=== PATIENT | male | born 1995 | race Caucasian/White ===

== ENCOUNTER 2016-03-24 18:26 | Emergency (ER) | payer OTHER ==
[~2016-03-24 18:26] MED LIST: ADV500INH INH; ALBU17IN INH; IBUPOTC PO
[2016-03-24] MEDS ORDERED: predniSONE 20 MG TAB As Ordered ONE (20:19)
[2016-03-24] MEDS ORDERED: ACETAMINOPHEN 325 MG TAB As Ordered ONE (20:19)
[2016-03-24] MEDS ORDERED: IPRATROPIUM 0.5MG/ALBUTEROL 2.5MG INH SOL UD 3ML (DUONEB)(J7620) As Ordered ONE (20:21)
[2016-03-24] MEDS ORDERED: ALBUTEROL 90 MCG/ACT 8GM HFA INHALER As Ordered ONE (21:26)
[2016-03-24] MEDS ORDERED: AZITHROMYCIN 250 MG TAB As Ordered ONE (21:26)
--- NOTE | 2016-03-24 21:46 | EDDOCDS ---
Physician Documentation [facility] Name: Rajeev Espinosa Age: 21 yrs Sex: Male : 1995 Arrival Date: 03/24/2016 Time: 18:26 Bed PD Private MD: [facility] Disposition: 03/24/16 21:28 Discharged to Home/Self Care. Impression: Acute bronchitis. - Condition is Stable. - Discharge Instructions: Acute Bronchitis. - Prescriptions for Zithromax 250 mg Oral Tablet - take 1 tablet by ORAL route once daily start tomorrow; 4 tablet. - Medication Reconciliation, Local Pharmacy Hours form. - Follow up: [facility]; When: Call to arrange an appointment; Reason: Recheck today's complaints, Continuance of care. - Problem is new. - Symptoms are unchanged. Historical: - Allergies: no known allergies; - Home Meds: 1. Dayquil 15ml every 4 hours as needed - PMHx: none; - PSHx: none; - Social history: Smoking status: Patient uses tobacco products, light tobacco smoker. No barriers to communication noted, The patient speaks fluent Sao Tomean, Speaks appropriately for age. - Family history: Not pertinent. - : The pt / caregiver states he / she is not on anticoagulants. Home medication list is obtained from the patient. - Exposure Risk Screening:: None identified. Vital Signs: 03/24 18:28 BP 171 / 81; Pulse 92; Resp 18 S; Temp 98.4(O); Pulse Ox 97% on R/A; Weight 79.38 kg / dd6 175 lbs (R); Height 5 ft. 6 in. (167.64 cm) (R); 21:36 BP 130 / 84; Pulse 71; Resp 18; Temp 97.4(T); Pulse Ox 97% on R/A; Pain 2/10; ar3 18:28 Body Mass Index 28.25 (79.38 kg, 167.64 cm) dd6 MDM: 20:16 Call Respiratory ordered. mo1 20:16 Albuterol-Ipratropium 3 ml Inhalation once ordered. mo1 20:16 Acetaminophen Tablet 975 mg PO once ordered. mo1 20:16 predniSONE 60 mg PO once; administer with food or milk ordered. mo1 20:17 Call Respiratory complete. rs3 20:17 Chest, 2 View (pa\E\lat) Ordered. EDMS 20:41 Financial registration complete. zo 20:42 [facility] Payment Agreement was scanned into [employer] and attached to record. zo 21:23 Ventolin Inhaler 2 puffs Inhalation once ordered. mo1 21:23 MDI teaching with Spacer ordered. mo1 21:23 azithromycin 500 mg PO once ordered. mo1 Administered Medications: 20:23 Drug: Acetaminophen 975 mg [acetaminophen 325 mg tablet (3 tabs)] Route: PO; rs3 20:23 Drug: predniSONE 60 mg [prednisone 20 mg tablet (3 tabs)] Route: PO; rs3 20:28 Drug: Albuterol-Ipratropium 3 ml [ipratropium-albuterol 0.5 mg-3 mg(2.5 mg base)/3 mL jh6 nebulization soln (3 mL)] Route: Inhalation; 21:39 Drug: Ventolin 2 puffs [Ventolin HFA 90 mcg/actuation aerosol inhaler (2 puffs)] Route: rs3 Inhalation; 21:39 Drug: azithromycin 500 mg [azithromycin 250 mg tablet (2 tabs)] Route: PO; rs3 Signatures: Dispatcher MedHost EDMA Gricel Rodriguez RN RN david3 Sheldon Daniels Rosemary, RN RN rs3 Kenn Severino PA PA mo1 Hardeep Culver jh6 The chart was reviewed and I authenticate all verbal orders and agree with the evaluation and treatment provided.Attachments: 20:42 [facility] Payment Agreement zo MTDD
--- NOTE | 2016-03-24 21:46 | EDDOCDS ---
Nurse's Notes [facility] Name: Rajeev Espinosa Age: 21 yrs Sex: Male : 1995 Arrival Date: 03/24/2016 Time: 18:26 Bed PD Private MD: [facility]SU[facility] JAIME Diagnosis: Acute bronchitis Presentation: 03/24 18:30 Presenting complaint: Patient states: SOB, productive cough with chest discomfort. Pt jo3 reports that he had pneumonia in January and "it feels a lot like that". Adult Sepsis Screening: The patient does not have new or worsening altered mentation. Patient's respiratory rate is less than 22. Systolic blood pressure is greater than 100. Patient has a qSOFA score of 0- Negative Sepsis Screen. Suicide/Homicide risk assessment- the patient denies having any suicidal and/or homicidal ideations and does not present with any other emotional, behavioral or mental health complaints. Status: The patient is an active duty service delivery analyst. Transition of care: patient was not received from another setting of care. 18:30 Acuity: MARIA INES Level 3 jo3 18:30 Method Of Arrival: Walkin/Carried/Asstd jo3 Triage Assessment: 18:33 General: Appears in no apparent distress, comfortable, Behavior is appropriate for age, jo3 cooperative, pleasant. HIV screening NA for this visit Offered previously. Neurological: No deficits noted. Level of Consciousness is awake, alert, Oriented to person, place, time. Respiratory: Airway is patent Respiratory effort is even, unlabored. 21:42 Respiratory: Onset: The symptoms/episode began/occurred gradually. rs3 Historical: - Allergies: no known allergies; - Home Meds: 1. Dayquil 15ml every 4 hours as needed - PMHx: none; - PSHx: none; - Social history: Smoking status: Patient uses tobacco products, light tobacco smoker. No barriers to communication noted, The patient speaks fluent Estonian, Speaks appropriately for age. - Family history: Not pertinent. - : The pt / caregiver states he / she is not on anticoagulants. Home medication list is obtained from the patient. - Exposure Risk Screening:: None identified. Screenin:39 Screening information is obtained from the patient. Fall risk: No risks identified. rs3 Assistance ADL's: requires no assistance with activities of daily living. Abuse/DV Screen: The patient / caregiver reports he/she is: not in a situation that causes fear, pain or injury. Nutritional screening: No deficits noted. Advance Directives: Currently, there is no health care proxy. There is no active DNR order. home support is adequate. Assessment: 20:23 General: Appears in no apparent distress, Behavior is appropriate for age, cooperative. rs3 Cardiovascular: Chest pain is denied. Respiratory: Airway is patent Respiratory effort is even, unlabored, Respiratory pattern is regular, symmetrical, Breath sounds with wheezes inspiratory expiratory bilaterally. Derm: Skin is pink, warm & dry. Vital Signs: 18:28 BP 171 / 81; Pulse 92; Resp 18 S; Temp 98.4(O); Pulse Ox 97% on R/A; Weight 79.38 kg dd6 (R); Height 5 ft. 6 in. (167.64 cm) (R); 21:36 BP 130 / 84; Pulse 71; Resp 18; Temp 97.4(T); Pulse Ox 97% on R/A; Pain 2/10; ar3 18:28 Body Mass Index 28.25 (79.38 kg, 167.64 cm) dd6 Vitals: 18:28 Log In Time: March 24, 2016 at 18:26. dd6 ED Course: 18:28 Patient visited by Erickson Zapata PCA. dd6 18:28 [facility] is Private Physician. dd6 18:28 Patient moved to Waiting dd6 18:29 Patient moved to Pre RCE dd6 18:32 Triage Initiated jo3 18:34 Patient visited by Gricel Rodriguez RN. jo3 19:36 Patient moved to Triage 2 ar3 20:10 Kenn Severino PA is PHCP. mo1 20:10 Trae Angeles DO is Attending Physician. mo1 20:16 Patient moved to PD / ar3 20:20 Patient visited by Kenn Severino PA. mo1 20:42 [facility] Payment Agreement was scanned into [employer] and attached to record. zo 20:45 Patient name changed from Rajeev\\S\\\\S\\Francisca\\S\\ to Rajeev\\S\\Antonne\\S\\Francisca. EDMS 21:27 [facility] is Referral Physician. mo1 21:36 Patient visited by Yamilka Skinner PCA. ar3 21:40 No IV's were initiated during this patient's visit. No procedures done that require rs3 assistance. 21:42 The patient / caregiver is instructed regarding the plan of care and ED course. rs3 Administered Medications: 20:23 Drug: Acetaminophen 975 mg [acetaminophen 325 mg tablet (3 tabs)] Route: PO; rs3 20:23 Drug: predniSONE 60 mg [prednisone 20 mg tablet (3 tabs)] Route: PO; rs3 20:28 Drug: Albuterol-Ipratropium 3 ml [ipratropium-albuterol 0.5 mg-3 mg(2.5 mg base)/3 mL jh6 nebulization soln (3 mL)] Route: Inhalation; 21:39 Drug: Ventolin 2 puffs [Ventolin HFA 90 mcg/actuation aerosol inhaler (2 puffs)] Route: rs3 Inhalation; 21:39 Drug: azithromycin 500 mg [azithromycin 250 mg tablet (2 tabs)] Route: PO; rs3 RT: 20:28 Initial Med Neb Given as ordered Patient was instructed and evaluated on procedure jh6 Patient tolerated procedure well without adverse effect. Respiratory: Airway is patent Respiratory effort is even, unlabored, Respiratory pattern is regular symmetrical, Breath sounds are diminished in left posterior upper lobe, right posterior upper lobe, left posterior lower lobe, right posterior middle lobe and right posterior lower lobe Breath sounds with wheezes in left posterior lower lobe, right posterior middle lobe and right posterior lower lobe at expiration. 20:37 Respiratory: Airway is patent Respiratory effort is even, unlabored, Respiratory jh6 pattern is regular symmetrical, Breath sounds are clear in left posterior upper lobe, right posterior upper lobe, right posterior middle lobe and right posterior lower lobe Breath sounds with wheezes in left posterior lower lobe at expiration. 21:40 Patient Education: patient instructed on proper spacer use and reason for use. jh6 Order Results: There are currently no results for this order. Outcome: 21:28 Discharge ordered by Provider. mo1 21:40 Discharge Assessment: patient administered narcotics - no. The following High Risk rs3 Discharge criteria are identified: None. Discharged to home with family. Condition: stable. Discharge instructions given to patient, Instructed on discharge instructions, follow up and referral plans. medication usage, Demonstrated understanding of instructions, medications, Pt was receptive of discharge instructions/ teaching. Prescriptions given X 1. No special radiology studies were completed. Property :Personal belongings accompany Pt. 21:45 Patient left the ED. rs3 Signatures: Dispatcher MedHost EDGricel Nolen RN RN jo3 Sheldon Daniels Daniell, EXHIBIT CLEANER EXHIBIT CLEANER dd6 Mayelin Hawkins RN RN rs3 Yamilka Skinner, EXHIBIT CLEANER EXHIBIT CLEANER ar3 Hardeep Culver 6 Kenn Severino PA PA mo1 MTDD
--- NOTE | 2016-03-25 03:07 | REP ---
Clinical: Acute cough . Comparison: 01/04/2016 . Technique: PA and lateral. Findings: The mediastinum and cardiac silhouette are normal. The lung hernandez are clear and without acute consolidation, effusion, or pneumothorax. The skeletal structures are intact and normal. Impression: 1. No acute cardiopulmonary process. Signed by Stanley Holley MD 03/25/2016 02:58 A
--- NOTE | 2016-03-26 22:46 | EDDOCDS ---
Physician Documentation [facility] Name: Rajeev Espinosa Age: 21 yrs Sex: Male : 1995 Arrival Date: 03/24/2016 Time: 18:26 Bed PD Private MD: [facility] Disposition: 03/24/16 21:28 Discharged to Home/Self Care. Impression: Acute bronchitis. - Condition is Stable. - Discharge Instructions: Acute Bronchitis. - Prescriptions for Zithromax 250 mg Oral Tablet - take 1 tablet by ORAL route once daily start tomorrow; 4 tablet. - Medication Reconciliation, Local Pharmacy Hours form. - Follow up: [facility]; When: Call to arrange an appointment; Reason: Recheck today's complaints, Continuance of care. - Problem is new. - Symptoms are unchanged. Historical: - Allergies: no known allergies; - Home Meds: 1. Dayquil 15ml every 4 hours as needed - PMHx: none; - PSHx: none; - Social history: Smoking status: Patient uses tobacco products, light tobacco smoker. No barriers to communication noted, The patient speaks fluent Albanian, Speaks appropriately for age. - Family history: Not pertinent. - : The pt / caregiver states he / she is not on anticoagulants. Home medication list is obtained from the patient. - Exposure Risk Screening:: None identified. Vital Signs: 03/24 18:28 BP 171 / 81; Pulse 92; Resp 18 S; Temp 98.4(O); Pulse Ox 97% on R/A; Weight 79.38 kg / dd6 175 lbs (R); Height 5 ft. 6 in. (167.64 cm) (R); 21:36 BP 130 / 84; Pulse 71; Resp 18; Temp 97.4(T); Pulse Ox 97% on R/A; Pain 2/10; ar3 18:28 Body Mass Index 28.25 (79.38 kg, 167.64 cm) dd6 MDM: 20:16 Call Respiratory ordered. mo1 20:16 Albuterol-Ipratropium 3 ml Inhalation once ordered. mo1 20:16 Acetaminophen Tablet 975 mg PO once ordered. mo1 20:16 predniSONE 60 mg PO once; administer with food or milk ordered. mo1 20:17 Call Respiratory complete. rs3 20:17 Chest, 2 View (pa\E\lat) Ordered. EDMS 20:41 Financial registration complete. zo 20:42 [facility] Payment Agreement was scanned into [employer] and attached to record. zo 21:23 Ventolin Inhaler 2 puffs Inhalation once ordered. mo1 21:23 MDI teaching with Spacer ordered. mo1 21:23 azithromycin 500 mg PO once ordered. mo1 22:05 T-Sheet-- Draft Copy was scanned into [employer] and attached to record. klr Administered Medications: 20:23 Drug: Acetaminophen 975 mg [acetaminophen 325 mg tablet (3 tabs)] Route: PO; rs3 20:23 Drug: predniSONE 60 mg [prednisone 20 mg tablet (3 tabs)] Route: PO; rs3 20:28 Drug: Albuterol-Ipratropium 3 ml [ipratropium-albuterol 0.5 mg-3 mg(2.5 mg base)/3 mL jh6 nebulization soln (3 mL)] Route: Inhalation; 21:39 Drug: Ventolin 2 puffs [Ventolin HFA 90 mcg/actuation aerosol inhaler (2 puffs)] Route: rs3 Inhalation; 21:39 Drug: azithromycin 500 mg [azithromycin 250 mg tablet (2 tabs)] Route: PO; rs3 Signatures: Dispatcher MedHost EDID Gricel Rodriguez RN RN jo3 Sheldon Daniels Rosemary, RN RN rs3 Kenn Severino PA PA mo1 Marcia Amaro Jacob jh6 The chart was reviewed and I authenticate all verbal orders and agree with the evaluation and treatment provided.Attachments: 20:42 [facility] Payment Agreement zo 22:05 T-Sheet-- Draft Copy klr Chart Complete MTDD
--- NOTE | 2016-03-26 22:46 | EDDOCDS ---
Physician Documentation [facility] Name: Rajeev Espinosa Age: 21 yrs Sex: Male : 1995 Arrival Date: 03/24/2016 Time: 18:26 Bed PD Private MD: [facility] Disposition: 03/24/16 21:28 Discharged to Home/Self Care. Impression: Acute bronchitis. - Condition is Stable. - Discharge Instructions: Acute Bronchitis. - Prescriptions for Zithromax 250 mg Oral Tablet - take 1 tablet by ORAL route once daily start tomorrow; 4 tablet. - Medication Reconciliation, Local Pharmacy Hours form. - Follow up: [facility]; When: Call to arrange an appointment; Reason: Recheck today's complaints, Continuance of care. - Problem is new. - Symptoms are unchanged. Historical: - Allergies: no known allergies; - Home Meds: 1. Dayquil 15ml every 4 hours as needed - PMHx: none; - PSHx: none; - Social history: Smoking status: Patient uses tobacco products, light tobacco smoker. No barriers to communication noted, The patient speaks fluent Slovak, Speaks appropriately for age. - Family history: Not pertinent. - : The pt / caregiver states he / she is not on anticoagulants. Home medication list is obtained from the patient. - Exposure Risk Screening:: None identified. Vital Signs: 03/24 18:28 BP 171 / 81; Pulse 92; Resp 18 S; Temp 98.4(O); Pulse Ox 97% on R/A; Weight 79.38 kg / dd6 175 lbs (R); Height 5 ft. 6 in. (167.64 cm) (R); 21:36 BP 130 / 84; Pulse 71; Resp 18; Temp 97.4(T); Pulse Ox 97% on R/A; Pain 2/10; ar3 18:28 Body Mass Index 28.25 (79.38 kg, 167.64 cm) dd6 MDM: 20:16 Call Respiratory ordered. mo1 20:16 Albuterol-Ipratropium 3 ml Inhalation once ordered. mo1 20:16 Acetaminophen Tablet 975 mg PO once ordered. mo1 20:16 predniSONE 60 mg PO once; administer with food or milk ordered. mo1 20:17 Call Respiratory complete. rs3 20:17 Chest, 2 View (pa\E\lat) Ordered. EDMS 20:41 Financial registration complete. zo 20:42 [facility] Payment Agreement was scanned into [employer] and attached to record. zo 21:23 Ventolin Inhaler 2 puffs Inhalation once ordered. mo1 21:23 MDI teaching with Spacer ordered. mo1 21:23 azithromycin 500 mg PO once ordered. mo1 22:05 T-Sheet-- Draft Copy was scanned into [employer] and attached to record. klr Administered Medications: 20:23 Drug: Acetaminophen 975 mg [acetaminophen 325 mg tablet (3 tabs)] Route: PO; rs3 20:23 Drug: predniSONE 60 mg [prednisone 20 mg tablet (3 tabs)] Route: PO; rs3 20:28 Drug: Albuterol-Ipratropium 3 ml [ipratropium-albuterol 0.5 mg-3 mg(2.5 mg base)/3 mL jh6 nebulization soln (3 mL)] Route: Inhalation; 21:39 Drug: Ventolin 2 puffs [Ventolin HFA 90 mcg/actuation aerosol inhaler (2 puffs)] Route: rs3 Inhalation; 21:39 Drug: azithromycin 500 mg [azithromycin 250 mg tablet (2 tabs)] Route: PO; rs3 Signatures: Dispatcher MedHost EDVA Gricel Rodriguez RN RN jo3 Sheldon Daniels Rosemary, RN RN rs3 Kenn Severino PA PA mo1 Marcia Amaro Jacob jh6 The chart was reviewed and I authenticate all verbal orders and agree with the evaluation and treatment provided.Attachments: 20:42 [facility] Payment Agreement zo 22:05 T-Sheet-- Draft Copy klr Chart Complete MTDD
--- NOTE | 2016-03-26 22:46 | EDDOCDS ---
Nurse's Notes [facility] Name: Rajeev Espinosa Age: 21 yrs Sex: Male : 1995 Arrival Date: 03/24/2016 Time: 18:26 Bed PD Private MD: SCSUAD JAIME Diagnosis: Acute bronchitis Presentation: 03/24 18:30 Presenting complaint: Patient states: SOB, productive cough with chest discomfort. Pt jo3 reports that he had pneumonia in January and "it feels a lot like that". Adult Sepsis Screening: The patient does not have new or worsening altered mentation. Patient's respiratory rate is less than 22. Systolic blood pressure is greater than 100. Patient has a qSOFA score of 0- Negative Sepsis Screen. Suicide/Homicide risk assessment- the patient denies having any suicidal and/or homicidal ideations and does not present with any other emotional, behavioral or mental health complaints. Status: The patient is an active duty director of services. Transition of care: patient was not received from another setting of care. 18:30 Acuity: MARIA INES Level 3 jo3 18:30 Method Of Arrival: Walkin/Carried/Asstd jo3 Triage Assessment: 18:33 General: Appears in no apparent distress, comfortable, Behavior is appropriate for age, jo3 cooperative, pleasant. HIV screening NA for this visit Offered previously. Neurological: No deficits noted. Level of Consciousness is awake, alert, Oriented to person, place, time. Respiratory: Airway is patent Respiratory effort is even, unlabored. 21:42 Respiratory: Onset: The symptoms/episode began/occurred gradually. rs3 Historical: - Allergies: no known allergies; - Home Meds: 1. Dayquil 15ml every 4 hours as needed - PMHx: none; - PSHx: none; - Social history: Smoking status: Patient uses tobacco products, light tobacco smoker. No barriers to communication noted, The patient speaks fluent Hungarian, Speaks appropriately for age. - Family history: Not pertinent. - : The pt / caregiver states he / she is not on anticoagulants. Home medication list is obtained from the patient. - Exposure Risk Screening:: None identified. Screenin:39 Screening information is obtained from the patient. Fall risk: No risks identified. rs3 Assistance ADL's: requires no assistance with activities of daily living. Abuse/DV Screen: The patient / caregiver reports he/she is: not in a situation that causes fear, pain or injury. Nutritional screening: No deficits noted. Advance Directives: Currently, there is no health care proxy. There is no active DNR order. home support is adequate. Assessment: 20:23 General: Appears in no apparent distress, Behavior is appropriate for age, cooperative. rs3 Cardiovascular: Chest pain is denied. Respiratory: Airway is patent Respiratory effort is even, unlabored, Respiratory pattern is regular, symmetrical, Breath sounds with wheezes inspiratory expiratory bilaterally. Derm: Skin is pink, warm & dry. Vital Signs: 18:28 BP 171 / 81; Pulse 92; Resp 18 S; Temp 98.4(O); Pulse Ox 97% on R/A; Weight 79.38 kg dd6 (R); Height 5 ft. 6 in. (167.64 cm) (R); 21:36 BP 130 / 84; Pulse 71; Resp 18; Temp 97.4(T); Pulse Ox 97% on R/A; Pain 2/10; ar3 18:28 Body Mass Index 28.25 (79.38 kg, 167.64 cm) dd6 Vitals: 18:28 Log In Time: March 24, 2016 at 18:26. dd6 ED Course: 18:28 Patient visited by Erickson Zapata PCA. dd6 18:28 [facility] is Private Physician. dd6 18:28 Patient moved to Waiting dd6 18:29 Patient moved to Pre RCE dd6 18:32 Triage Initiated jo3 18:34 Patient visited by Gricel Rodriguez RN. jo3 19:36 Patient moved to Triage 2 ar3 20:10 Kenn Severino PA is PHCP. mo1 20:10 Trae Angeles DO is Attending Physician. mo1 20:16 Patient moved to PD / ar3 20:20 Patient visited by Kenn Severino PA. mo1 20:42 [facility] Payment Agreement was scanned into [employer] and attached to record. zo 20:45 Patient name changed from Rajeev\\S\\\\S\\Francisca\\S\\ to Rajeev\\S\\Antonne\\S\\Francisca. EDMS 21:27 [facility] is Referral Physician. mo1 21:36 Patient visited by Yamilka Skinner PCA. ar3 21:40 No IV's were initiated during this patient's visit. No procedures done that require rs3 assistance. 21:42 The patient / caregiver is instructed regarding the plan of care and ED course. rs3 22:05 T-Sheet-- Draft Copy was scanned into [employer] and attached to record. klr 03/25 03:19 Chest, 2 View (pa\\E\\lat) Returned. EDMS Administered Medications: 03/24 20:23 Drug: Acetaminophen 975 mg [acetaminophen 325 mg tablet (3 tabs)] Route: PO; rs3 20:23 Drug: predniSONE 60 mg [prednisone 20 mg tablet (3 tabs)] Route: PO; rs3 20:28 Drug: Albuterol-Ipratropium 3 ml [ipratropium-albuterol 0.5 mg-3 mg(2.5 mg base)/3 mL jh6 nebulization soln (3 mL)] Route: Inhalation; 21:39 Drug: Ventolin 2 puffs [Ventolin HFA 90 mcg/actuation aerosol inhaler (2 puffs)] Route: rs3 Inhalation; 21:39 Drug: azithromycin 500 mg [azithromycin 250 mg tablet (2 tabs)] Route: PO; rs3 RT: 20:28 Initial Med Neb Given as ordered Patient was instructed and evaluated on procedure jh6 Patient tolerated procedure well without adverse effect. Respiratory: Airway is patent Respiratory effort is even, unlabored, Respiratory pattern is regular symmetrical, Breath sounds are diminished in left posterior upper lobe, right posterior upper lobe, left posterior lower lobe, right posterior middle lobe and right posterior lower lobe Breath sounds with wheezes in left posterior lower lobe, right posterior middle lobe and right posterior lower lobe at expiration. 20:37 Respiratory: Airway is patent Respiratory effort is even, unlabored, Respiratory jh6 pattern is regular symmetrical, Breath sounds are clear in left posterior upper lobe, right posterior upper lobe, right posterior middle lobe and right posterior lower lobe Breath sounds with wheezes in left posterior lower lobe at expiration. 21:40 Patient Education: patient instructed on proper spacer use and reason for use. jh6 Order Results: Radiology Order: Chest, 2 View (pa\\E\\lat) Test: Chest, 2 View (pa\\E\\lat) REASON FOR EXAMINATION: Cough; Clinical: Acute cough .; ; Comparison: 01/04/2016 .; ; Technique: PA and lateral.; ; Findings:; The mediastinum and cardiac silhouette are normal. The lung hernandez are clear and; without acute consolidation, effusion, or pneumothorax. The skeletal structures; are intact and normal.; ; Impression:; 1. No acute cardiopulmonary process.; ; ; Signed by; Stanley Holley MD 03/25/2016 02:58 A; Outcome: 21:28 Discharge ordered by Provider. mo1 21:40 Discharge Assessment: patient administered narcotics - no. The following High Risk rs3 Discharge criteria are identified: None. Discharged to home with family. Condition: stable. Discharge instructions given to patient, Instructed on discharge instructions, follow up and referral plans. medication usage, Demonstrated understanding of instructions, medications, Pt was receptive of discharge instructions/ teaching. Prescriptions given X 1. No special radiology studies were completed. Property :Personal belongings accompany Pt. 21:45 Patient left the ED. rs3 Signatures: Dispatcher MedHost EDMS Gricel Rodriguez RN RN jo3 Sheldon Daniels Daniell, DINKEY MOTOR OPERATOR DINKEY MOTOR OPERATOR dd6 Mayelin Hawkins RN RN rs3 Yamilka Skinner, DINKEY MOTOR OPERATOR DINKEY MOTOR OPERATOR ar3 Hardeep Culver jh6 Kenn Severino PA PA mo1 Marcia Amaro Chart Complete MTDD
== END 2016-03-24 21:45 | disposition home or self-care (01) ==
LOC: M ED 18:26
DX: J45.901 Unspecified asthma with (acute) exacerbation (principal); J20.9 Acute bronchitis, unspecified; F17.210 Nicotine dependence, cigarettes, uncomplicated